=== PATIENT | female | born 1990 | race African-American/Black ===

== ENCOUNTER 2023-09-13 13:30 | Emergency (ER) | payer SELFPAY ==
[2023-09-13] MEDS: Ketorolac 60 MG/2 ML SDV IM ONE (14:39)
[2023-09-13] MEDS: HYDROmorphone 1 MG/ML Syringe IM ONE (14:40)
== END 2023-09-13 15:19 | disposition home or self-care (01) ==
LOC: JD.ED 13:30
DX: K08.89 Other specified disorders of teeth and supporting structures (principal); Z88.5 Allergy status to narcotic agent; Z88.8 Allergy status to other drugs, medicaments and biological substances
CPT/HCPCS: 96372; 99282; J1170; J1885; 99283

== ENCOUNTER 2024-06-02 10:16 | Emergency (ER) | payer OTHER ==
[2024-06-02 11:11] LABS: BASOPHILS PERCENT AUTO 0.2 % (0.0-1.0); EOSINOPHILS ABSOLUTE AUTO 0.2 K/mm3 (0.0-0.4); EOSINOPHILS PERCENT AUTO 2.7 % (0.0-6.0); HEMATOCRIT 38.5 % (37.0-47.0); HEMOGLOBIN 13.7 gm/dl (12.0-16.0); IMMATURE GRAN ABSOLUTE AUTO 0.02 K/mm3 (0.00-0.05); IMMATURE GRAN PERCENT AUTO 0.3 % (0.0-0.4); LYMPHOCYTES ABSOLUTE AUTO 1.4 K/mm3 (1.0-4.8); LYMPHOCYTES PERCENT AUTO 21.7 % (24.0-44.0); MEAN CORPUSCULAR HEMOGLOBIN 30.2 pg (28.0-32.0); MEAN CORPUSCULAR HGB CONC 35.6 g/dl (32.0-36.0); MEAN PLATELET VOLUME 9.8 fl (9.4-12.3); MONOCYTES ABSOLUTE AUTO 0.4 K/mm3 (0.0-0.8); MONOCYTES PERCENT AUTO 6.7 % (0.0-8.0); NEUTROPHILS ABSOLUTE AUTO 4.3 K/mm3 (1.8-7.7); NEUTROPHILS PERCENT AUTO 68.4 % (41.0-71.0); PLATELET COUNT,PLT 203 K/mm3 (150-400); RED BLOOD CELL COUNT 4.53 M/mm3 (4.10-5.30)
[2024-06-02 11:28] LABS: HCG QUALITATIVE,SERUM NEGATIVE (NEGATIVE)
[2024-06-02 11:36] LABS: A/G RATIO 0.7 (1-2); ALBUMIN 3.1 g/dl (3.4-5.0); BILIRUBIN TOTAL 0.4 mg/dL (0.2-1.0); BUN/CREATININE RATIO 6.7 (14-18); CALCIUM 8.5 mg/dL (8.5-10.1); CREATININE 0.9 mg/dL (0.55-1.02); EST CRCL DRUG DOSING (CG) 96.58 mL/min; PROTEIN TOTAL,TP 7.3 g/dl (6.4-8.2)
== END 2024-06-02 12:53 | disposition home or self-care (01) ==
LOC: JD.ED 10:16
DX: U07.1 COVID-19 (principal); J06.9 Acute upper respiratory infection, unspecified; J02.9 Acute pharyngitis, unspecified; J04.0 Acute laryngitis; Z91.018 Allergy to other foods; Z88.5 Allergy status to narcotic agent; Z88.8 Allergy status to other drugs, medicaments and biological substances
CPT/HCPCS: 36415; 71045; 71045-26; 80053; 84703; 85025; 86308; 87428-QW; 87651-QW; 99283

== ENCOUNTER 2024-11-05 14:14 | Emergency (ER) | payer OTHER ==
[2024-11-05] MEDS: Acetaminophen/oxyCODONE 325-5 MG Tab PO ONE (15:46)
[2024-11-05] MEDS: Penicillin V Potassium 250 MG Tab PO STA (15:47)
== END 2024-11-05 15:50 | disposition home or self-care (01) ==
LOC: JD.ED 14:14
DX: K08.89 Other specified disorders of teeth and supporting structures (principal); Z91.040 Latex allergy status; Z88.8 Allergy status to other drugs, medicaments and biological substances; Z91.018 Allergy to other foods; Z79.899 Other long term (current) drug therapy
CPT/HCPCS: 99282; A9270; 99283

== ENCOUNTER 2025-02-17 09:44 | Emergency (ER) | payer OTHER ==
[2025-02-17] MEDS: Sodium Chloride 0.9% 10 ML Syringe FLUSH PRN (10:28)
[2025-02-17 10:32] LABS: BASOPHILS ABSOLUTE AUTO 0.0 K/mm3 (0.0-0.2); BASOPHILS PERCENT AUTO 0.4 % (0.0-1.0); EOSINOPHILS ABSOLUTE AUTO 0.0 K/mm3 (0.0-0.4); EOSINOPHILS PERCENT AUTO 0.8 % (0.0-6.0); IMMATURE GRAN ABSOLUTE AUTO 0.02 K/mm3 (0.00-0.05); IMMATURE GRAN PERCENT AUTO 0.4 % (0.0-0.4); LYMPHOCYTES ABSOLUTE AUTO 1.5 K/mm3 (1.0-4.8); LYMPHOCYTES PERCENT AUTO 30.8 % (24.0-44.0); MEAN PLATELET VOLUME 9.5 fl (9.4-12.3); MONOCYTES ABSOLUTE AUTO 0.5 K/mm3 (0.0-0.8); MONOCYTES PERCENT AUTO 10.6 % (0.0-8.0); NEUTROPHILS ABSOLUTE AUTO 2.8 K/mm3 (1.8-7.7); NEUTROPHILS PERCENT AUTO 57.0 % (41.0-71.0); NRBC ABSOLUTE 0.00 (0.00-0.02); NRBC PERCENT 0.0 % (0.0-0.2); PLATELET COUNT,PLT 232 K/mm3 (150-400); RED BLOOD CELL COUNT 4.45 M/mm3 (4.10-5.30); WHITE BLOOD CELL COUNT,WBC 4.90 K/mm3 (3.9-11.3)
[2025-02-17 10:59] LABS: A/G RATIO 0.8 (1-2); ALANINE AMINOTRANSFERASE,ALT 41.0 U/L (14-59); ASPARTATE AMNIOTRANSFERASE,AST 34.0 U/L (15-37); BILIRUBIN TOTAL 0.3 mg/dL (0.2-1.0); BLOOD UREA NITROGEN,BUN 13.0 mg/dL (7-18); CARBON DIOXIDE,CO2 29.0 mEq/L (21-32); CHLORIDE,CL 103.0 mEq/L (98-107); CREATININE 1.0 mg/dL (0.55-1.02); EST CRCL DRUG DOSING (CG) 78.46 mL/min; ESTIMATED GFR 75.0 mL/min (>60); GLUCOSE RANDOM 86.0 mg/dL (70-99); POTASSIUM,K 4.1 mEq/L (3.5-5.1); PROTEIN TOTAL,TP 7.5 g/dl (6.4-8.2); SODIUM,NA 138.0 mEq/L (136-145)
== END 2025-02-17 12:38 | disposition home or self-care (01) ==
LOC: JD.ED 09:44
DX: N83.201 Unspecified ovarian cyst, right side (principal); Z91.040 Latex allergy status; Z91.018 Allergy to other foods; Z88.5 Allergy status to narcotic agent; Z79.51 Long term (current) use of inhaled steroids; Z79.899 Other long term (current) drug therapy
CPT/HCPCS: 36415; 76830; 76830-26; 80053; 84703; 85025; 96374; 99284-25; J1171